=== PATIENT | male | born 1985 | race Two or more races ===

== ENCOUNTER 2021-05-23 00:16 | Emergency (ER) | payer MEDICAID ==
[~2021-05-23] VITALS: Ht 172.7 cm; Wt 90.7 kg
[2021-05-23 00:37] VITALS: BP 117/75
[2021-05-23] MEDS ORDERED: ACETAMINOPHEN 500 MG TAB PO ONE (01:00)
== END 2021-05-23 02:24 | disposition left against medical advice (07) ==
LOC: ER 00:16
DX: R51.9 Headache, unspecified (principal); R50.9 Fever, unspecified; R05 Cough; Z53.21 Procedure and treatment not carried out due to patient leaving prior to being seen by health care provider

== ENCOUNTER 2021-05-28 10:35 | Emergency (ER) | payer MEDICAID ==
[~2021-05-28] VITALS: Ht 172.7 cm; Wt 131.5 kg
[2021-05-28 10:38] VITALS: BP 124/76
[2021-05-28 11:34] LABS: Basophils # (auto) 0 10 ^3/uL (0-0.2); Basophils % (auto) 0.2 % (0.0-2.0); Eosinophils # (auto) 0 10 ^3/uL (0-0.8); Eosinophils % (auto) 0.7 % (0.0-7.0); Hematocrit 43.6 % (41.0-53.0); Hemoglobin 15.5 g/dL (13.5-17.5); Lymphocytes % (auto) 23.1 % (10.0-50.0); Mean Corpuscular Hemoglobin 32.9 pg (28.0-32.0); Mean Corpuscular Hgb Conc. 35.5 g/dL (32.0-36.0); Mean Corpuscular Volume 92.7 fL (80.0-100.0); Monocytes # (auto) 0.7 10 ^3/uL (0-1.3); Monocytes % (auto) 14.6 % (0.0-12.0); Neutrophils # (auto) 2.8 10 ^3/uL (1.6-8.6); Neutrophils % (auto) 61.4 % (37.0-80.0); Nucleated Red Blood Cells % 0.2 %; Red Blood Cells 4.71 10^6/uL (4.5-5.90); White Blood Cell 4.5 10^3/uL (4.4-10.8)
[2021-05-28] MEDS ORDERED: cefTRIAXone W LIDOCAINE 1 GM IM IM ONE (12:00)
[2021-05-28] MEDS ORDERED: cefTRIAXone SOD 1,000 MG VL ONE (12:26)
[2021-05-28 13:38] LABS: Albumin 2.8 g/dL (3.4-5.0); Calcium 9.1 mg/dL (8.5-10.1); Potassium 3.7 mmol/L (3.5-5.1)
[2021-05-28 13:40] LABS: BUN/Creatinine Ratio 12.9
[2021-05-28 13:43] LABS: Bilirubin, Total 0.5 mg/dL (0.2-1.0); Total Protein 8.9 g/dL (6.4-8.2)
== END 2021-05-28 12:57 | disposition home or self-care (01) ==
LOC: ER 10:35
DX: J18.9 Pneumonia, unspecified organism (principal); Z20.822 Contact with and (suspected) exposure to COVID-19
CPT/HCPCS: 36415; 71046; 80053; 85025; 87426; 93005; 96372; 99285; J0696

== ENCOUNTER 2023-06-16 12:14 | Emergency (ER) | payer MEDICAID ==
[~2023-06-16] VITALS: Ht 172.7 cm; Wt 96.4 kg
[2023-06-16 15:47] VITALS: BP 133/88; PULSE 94; RESP 18; TEMP 98.5; O2SAT 96
== END 2023-06-16 15:51 | disposition home or self-care (01) ==
LOC: ER 12:14
DX: S93.601A Unspecified sprain of right foot, initial encounter (principal); X58.XXXA Exposure to other specified factors, initial encounter; Y93.89 Activity, other specified; Y92.89 Other specified places as the place of occurrence of the external cause; Y99.8 Other external cause status
CPT/HCPCS: 73630